=== PATIENT | male | born 1990 | race Caucasian/White ===

== ENCOUNTER 2020-03-28 02:59 | Emergency (ER) | payer OTHER ==
[~2020-03-28] VITALS: Ht 170.2 cm; Wt 77.1 kg
[2020-03-28] MEDS ORDERED: VISTARIL25 MG PO (03:18)
== END 2020-03-28 03:31 | disposition home or self-care (01) ==
LOC: ER 02:59
DX: R00.2 Palpitations (principal); F41.8 Other specified anxiety disorders

== ENCOUNTER → 2020-05-04 | Emergency (ER) | payer OTHER ==
[~2020-05-04] VITALS: Ht 177.8 cm; Wt 82.6 kg
[~2020-05-04] MED LIST: VISTARIL25 MG PO
== END | disposition left against medical advice (07) ==
LOC: ER 22:57
DX: N45.1 Epididymitis (principal)